=== PATIENT | male | born 2000 | race Caucasian/White ===

== ENCOUNTER 2022-10-17 07:58 | Outpatient (CLI) | payer OTHER, SELFPAY ==
--- NOTE | 2022-10-17 08:15 | CRLHL7_ITS ---
For Patients: As a result of the Century Cures Act, medical imaging exams and procedure reports are released immediately into your electronic medical record. You may view this report before your referring provider. If you have questions, please contact your health care provider. INDICATION: RUQ pain, weight loss COMPARISON: none TECHNIQUE: Real time nicholas scale imaging and color Doppler analysis was performed of the right upper quadrant. FINDINGS: The patient`s liver is of normal size and has uniform echogenicity. There is a normal appearance of the hepatic IVC and proximal abdominal aorta. There is no evidence of ascites. The gallbladder is moderately filled with echogenic sludge along with echogenic debris elsewhere. The gallbladder wall measures 2 mm in thickness. The common bile duct is of normal size and measures 5 mm in diameter at the level of the celsa hepatis. The pancreas appears normal. There is no evidence of a stone or hydronephrosis within the right kidney. The right kidney measures 10.7 cm in length. IMPRESSION: Moderate sludge in the gallbladder along with cholesterol stones consistent with cholelithiasis. No biliary obstruction. Dictated by Jagdeep Nicole MD @ 10/17/2022 10:55:37 AM (Electronically Signed)
== END 2022-10-17 07:59 | disposition home or self-care (01) ==
PROVIDERS: Visit Provider Internal Medicine
DX: R10.11 Right upper quadrant pain (principal); K80.20 Calculus of gallbladder without cholecystitis without obstruction
CPT/HCPCS: 76705

== ENCOUNTER 2022-11-08 13:46 | Emergency (ER) | payer OTHER, SELFPAY ==
[2022-11-08] VITALS (17 sets, daily range): BP systolic 119–141; BP diastolic 71–90; PULSE 51–73; RESP 18; TEMP 36.6; O2SAT 97–100; BMI 21.6
--- NOTE | 2022-11-08 14:13 | ED_ITS ---
HPI - Abdominal Pain General Time Seen by Provider: 14:14 Date Seen: 11/08/22 Chief Complaint: Abdominal Pain Stated Complaint: Abdominal Pain Time Seen by Provider: 11/08/22 14:07 Source: patient and RN notes reviewed Mode of arrival: ambulatory Limitations: no limitations History of Present Illness HPI narrative: Patient is a 22-year-old male presenting with increased abdominal pain. For about the last 3-4 days, has had increased right-sided abdominal pain. His baseline abdominal pain has been about a level 3 or 4, is having episodes where it is becoming stabbing and sharp for a while. With this he will have nausea but no vomiting. Appetite is diminished. He has been plagued with some abdominal pain and diarrhea with weight loss. Has had negative stool studies. Has been in the ED before and then a clinic follow-up. Ultrasound of his gallbladder at that clinic followup did show sludge and stones. They state the surgeon was not convinced that the symptoms were from gallstones. He has not noted any fever. His mom is wondering about a CT of his abdomen given the right-sided symptoms, his dad has had to have his appendix out. She is not awar e of anyone needing their gallbladder out. She herself has gallstones but has never had any issue. He has had weight loss with this diarrhea, has had negative stool studies. EGD and colonoscopy are scheduled for November 14. MD elicited complaint: abdominal pain Related Data Previous Rx's Medication Instructions Recorded peg 3350-electrolytes 236 240 ml PO Q10M #4,000 mL 10/29/22 gram-22.74 gram-6.74 gram-5.86 gram solution (Golytely) Allergies Allergy/AdvReac Type Severity Reaction Status Date / Time No Known Drug Allergies Allergy Verified 10/24/22 13:15 Review of Systems Status of ROS Reports: 6 or more systems reviewed and unremarkable except as noted in History and below [facility] Medical History Weight loss ?R63.4 - Abnormal weight loss (ICD-10) Cholelithiasis ?K80.20 - Calculus of gallbladder without cholecystitis without obstruction (ICD-10) Loose stools ?R19.5 - Other fecal abnormalities (ICD-10) No significant past medical history Surgical History History of nasal septoplasty ?Z98.890 - Other specified postprocedural states (ICD-10) No significant past surgical history Family History Mother Autoimmune disorder Other High blood pressure Social History Narrative: Non smoker Smoking Status: Never smoker Do you use any of these nicotine containing products: None Second hand tobacco smoke exposure: No How often do you have a drink containing alcohol: never How often do you have six or more drinks on one occasion: Never AUDIT-C Alcohol total score: 0 Non-prescribed substance use: denies use Exam Const: Vital Signs, click to edit/add: Vital Signs - 24 hr 11/08/22 13:56 11/08/22 15:00 11/08/22 15:43 Temperature 97.8 F Pulse Rate 62 Pulse Rate [Pulse Oximeter] 73 67 Respiratory Rate 18 18 Blood Pressure Blood Pressure [Ri ght Upper Arm] 139/82 119/75 Pulse Oximetry 97 98 97 Oxygen Delivery Me thod Room Air Room Air Room Air 11/08/22 15:45 11/08/22 16:00 11/08/22 16:02 Temperature Pulse Rate 70 71 62 Pulse Rate [Pulse Oximeter] Respiratory Rate Blood Pressure 121/72 Blood Pressure [Ri ght Upper Arm] Pulse Oximetry 98 99 99 Oxygen Delivery Me thod 11/08/22 16:15 11/08/22 16:30 11/08/22 16:31 Temperature Pulse Rate 60 61 62 Pulse Rate [Pulse Oximeter] Respiratory Rate Blood Pressure 123/74 Blood Pressure [Ri ght Upper Arm] Pulse Oximetry 98 99 100 Oxygen Delivery Me thod 11/08/22 16:45 Temperature Pulse Rate 63 Pulse Rate [Pulse Oximeter] Respiratory Rate Blood Pressure Blood Pressure [Ri ght Upper Arm] Pulse Oximetry 99 Oxygen Delivery Me thod Documenting provider has reviewed patient's vital signs: yes Common normals: no apparent distress, oriented x3, no limitations, healthy appearing and alert General appearance: cooperative, comfortable, well kempt and well developed Nutritional appearance: thin HENMT: Common normals: normocephalic, head/scalp atraumatic, hearing grossly normal bilaterally, external nose normal, moist oral mucous membranes, oropharynx normal, dentition normal and gingiva normal Head and scalp: normocephalic and atraumatic Nose: external nose normal Eye: Common normals: PERRL, EOMs intact bilaterally, conjunctivae normal and no scleral icterus Conjunctiva: conjunctiva(e) normal Pupil: PERRL Neck & C-Spine: Common normals: full ROM, no lymphadenopathy and supple Resp: Common normals: normal respiratory effort, no retractions, no use of accessory muscles and clear to auscultation bilaterally Effort & inspection: able to speak in complete sentences Auscultation: clear to auscultation bilaterally Cardio: Common normals: regular rate, regular rhythm, S1 normal heart sound, S2 normal heart sound, no gallops, no clicks and no murmurs Rate: regular rate Rhythm: regular rhythm Heart sounds: S1 normal and S2 normal GI: Other: Abdomen is thin, not distended. Bowel sounds are normal. Has right upper quadrant to right mid abdominal pain with guarding, no rebound. I do not feel any mass. Neuro: Common normals: oriented x3 Sensorium/orientation: alert Psych: Appearance: well kempt Course Course Hospital Course: Will proceed with CT imaging given the lower right abdominal pain on palpation. Mom really would like this. Will get full complement of labs including liver functions. Obtain repeat right upper quadrant ultrasound. Colitis, choledocholithiasis with pancreatitis, pancreatitis, cholecystitis, appendicitis are among intra-abdominal considerations. I have also reviewed possibility of inflammatory bowel disease. Will get labs and repeat the ultrasound, obtain CT of the abdomen to further evaluate. Reevaluation(s) Time of Reevaluation #1: 16:20 Reevaluation #1: Have reviewed with patient and his mom that the ultrasound is showing some sludge in the gallbladder but no evidence of wall thickening, no cholecystitis. His labs are very unremarkable including inflammatory markers. We are still awaiting his CT of his abdomen to be read. He is uncomfortable, reviewed with him that we can try some IV Toradol in see if it helps. Zofran did help his nausea. Time of Reevaluation #2: 17:47 Reevaluation #2: Reviewed that the CT is only showing some inflamed mesenteric lymph nodes. The etiology of this is unknown at this time. Otherwise the CT was read as normal. His labs are completely reassuring. The Toradol did help. They are requesting some oral Toradol and Zofran for discharge which we will give from [facility]. They understand to not use the Toradol and ibuprofen together but either can be used with Tylenol. Vital Signs Vital signs: Initial Vital Signs Temperature 97.8 F 11/08/22 13:56 Temperature Source Temporal Artery Scan 11/08/22 13:56 Pulse Rate 73 11/08/22 13:56 Pulse Rhythm Regular 11/08/22 13:56 Respiratory Rate 18 11/08/22 13:56 Blood Pressure 139/82 11/08/22 13:56 Blood Pressure Mean 101 11/08/22 13:56 Blood Pressure Position Supine 11/08/22 13:56 Pulse Oximetry 97 11/08/22 13:56 Oxygen Delivery Method Room Air 11/08/22 13:56 Vital Signs Temperature 97.8 F 11/08/22 13:56 Pulse Rate 73 11/08/22 13:56 Respiratory Rate 18 11/08/22 13:56 Blood Pressure 139/82 11/08/22 13:56 Pulse Oximetry 97 11/08/22 13:56 Oxygen Delivery Method Room Air 11/08/22 13:56 Temperature 97.8 F 11/08/22 13:56 Pulse Rate 63 11/08/22 16:45 Respiratory Rate 18 11/08/22 15:00 Blood Pressure 123/74 11/08/22 16:31 Pulse Oximetry 99 11/08/22 16:45 Oxygen Delivery Method Room Air 11/08/22 15:43 MDM - Abdominal Pain Differential Diagnosis Differential diagnosis: Likely abdominal pain, acute appendicitis, gastroenteritis, pancreatitis and small bowel obstruction Lab Data Attestation: I reviewed the patient's lab results. Labs: Lab Results 11/08/22 Range/Units 14:45 WBC 7.24 (4.50-11.00) K/uL RBC 4.71 (4.30-5.90) m/uL Hgb 13.7 (13.5-17.5) gm/dL Hct 40.4 (37.0-53.0) % MCV 86 (80-100) fL MCH 29 (26-34) pg MCHC 34 (32-36) gm/dL RDW Coeff of Latha 12.2 (11.5-15.5) % Plt Count 303 (140-440) K/uL Neut % (Auto) 55.0 (42.0-72.0) % Lymph % (Auto) 30.4 (20-44) % Rooks % (Auto) 11.3 H (0.0-11.0) % Eos % (Auto) 2.3 (0.0-7.0) % Baso % (Auto) 0.4 (0.0-3.0) % Neut # (Auto) 3.98 (1.7-7.0) K/uL Lymph # (Auto) 2.20 (0.90-2.90) K/uL Rooks # (Auto) 0.80 (0.00-0.90) K/UL Eos # (Auto) 0.17 (0.00-0.50) K/uL Baso # (Auto) 0.03 (0.00-0.30) K/uL Sodium 139 (135-149) mmol/L Potassium 3.6 (3.6-5.1) mmol/L Chloride 103 (96-114) mmol/L Carbon Dioxide 24 (20-32) mmol/L BUN 13 (5-24) mg/dL Creatinine 0.8 (0.5-1.5) mg/dL Estimated Creat Clear 144.03 Estimated GFR 128 ml/min Glucose 99 (60-115) mg/dL Lactate 1.0 (0.5-1.9) mmol/L Calcium 9.5 (8.4-10.6) mg/dL Total Bilirubin 0.3 (0.1-1.5) mg/dL Direct Bilirubin 0.0 (0.0-0.5) mg/dL AST 23 (12-35) U/L ALT 17 (4-50) U/L Alkaline Phosphatase 64 (40-150) U/L C-Reactive Protein 1.0 (0.5-1.0) mg/dL Total Protein 8.2 (6.0-8.3) g/dL Albumin 2.5 L (3.3-5.0) g/dL Lipase 71 (23-300) U/L Imaging Data US - abdomen: Attestation: I have reviewed the pertinent imaging results. Radiologist's impression: Patient: [facility] Facility:[facility] Patient ID:?[id number] Site Patient ID:?[id number]. Site :?[id number] Study:?US Abdomen RUQ-11/08/2022 3:08:44 PM Ordering Physician:Yuly Purcell Final Report: INDICATION: Right abdominal pain, known gallstones TECHNIQUE: Ultrasound abdomen limited. Sonographic images of the right upper quadrant were obtained using nicholas-scale and color Doppler images. COMPARISON: Right upper quadrant ultrasound 10/17/2022 FINDINGS: Liver: Normal in size and echotexture. No masses. No intrahepatic biliary dilatation. Gallbladder: Minimal gallbladder sludge. No cholelithiasis. Negative sonographic Odom sign. Normal wall thickness. No pericholecystic fluid. Common bile duct: 4 mm. Pancreas: Normal. Right kidney: Normal in size. Normal echotexture and cortex. No masses, stones, or hydronephrosis. Vasculature: Proximal abdominal aorta and IVC are normal. IMPRESSION: Minimal gallbladder sludge, otherwise unremarkable right upper quadrant ultrasound. Dictated by Gonsalo Rosales MD @ 11/08/2022 3:40:54 PM (Electronic Signature) CT scan - abdomen: Attestation: I have reviewed the pertinent imaging results. Radiologist's impression: Patient: ISABELLE JOHNSON Facility:?[facility] Patient ID:?[id number] Site Patient ID:?[id number]. Site :?[id number] Study:?CT Abdomen/Pelvis W/ISOVUE 370 76CC-11/08/2022 4:29:58 PM Ordering Physician:?Paola Purcell Final Report: INDICATION: Right abdominal pain.. TECHNIQUE: CT abdomen and pelvis acquired with 76 cc Isovue 370 IV contrast. COMPARISON: None. FINDINGS: Lower chest: Unremarkable. Liver: Unremarkable. Normal in size and attenuation. No suspicious masses. Gallbladder and bile ducts: Unremarkable. No stones or inflammation. No biliary dilatation. Pancreas: Unremarkable. No mass or inflammation. Spleen: Unremarkable. Normal in size. No masses. Adrenal glands: Unremarkable. No nodules. Kidneys: Unremarkable. No suspicious masses, stones, or hydronephrosis. GI tract: No bowel obstruction. Appendix is not entirely visualized small tubular structure in the right lower quadrant likely the appendix. No right lower quadrant inflammatory changes no free-fluid. Vasculature: Abdominal aorta is normal in caliber. Mesenteric arteries are patent. Lymph nodes: Diffusely enlarged as lymph nodes.. Peritoneum/Abdominal Wall: Unremarkable. No sign of mass or infiltration. No free air or significant free fluid. Pelvis: Unremarkable. Bones: Unremarkable for age. IMPRESSION: No acute intra-abdominal process identified. Probable appendix identified in the right lower quadrant. No evidence of inflammation. No surrounding inflammatory changes or free fluid in the right lower quadrant. Diffusely enlarged mesenteric lymph nodes, nonspecific. Please note that all CT scans at this facility use dose modulation, iterative reconstruction, and/or weight-based dosing when appropriate to reduce radiation dose to as low as reasonably achievable. Dictated by Pawan Gaitan MD @ 11/08/2022 5:00:47 PM (Electronic Signature) Critical Care Time Critical Care Time Critical Care Time: No Discharge Plan Discharge Clinical Impression: Unintended weight loss, Diarrhea, Abdominal pain Patient Disposition: Home, Self-Care Condition: Stable Instructions: Acute Abdominal Pain (DC), Nutrition Tips for Relief of Diarrhea (ED), Chronic Abdominal Pain (DC) Additional Instructions: Can use Zofran as needed to help with nausea. Tylenol baseline for pain. Ibuprofen and Toradol can be used but not together. You can try the Toradol for more severe pain. Either of these are fine to use with Tylenol. Both Toradol and ibuprofen come from the same class of nonsteroidal anti-inflammatory medications. You need to complete the colonoscopy an EGD which is scheduled next week. In the interim, if you feel your becoming dehydrated or have new or worsening symptoms, can always seek re-evaluation with us. Activity Level: Activity as Tolerated Prescriptions: No Action peg 3350-electrolytes [Golytely] 236-22.74-6.74 -5.86 gram recon soln 240 ml PO Q10M Qty: 4000 0RF Rx Instructions: until fecal effluent is clear Follow Up/Referrals: Provider,Not a Local [Primary Care Provider] - Stand Alone Forms: MyHealth Info Instructions
--- NOTE | 2022-11-08 14:31 | CRLHL7_ITS ---
For Patients: As a result of the Century Cures Act, medical imaging exams and procedure reports are released immediately into your electronic medical record. You may view this report before your referring provider. If you have questions, please contact your health care provider. INDICATION: Right abdominal pain.. TECHNIQUE: CT abdomen and pelvis acquired with 76 cc Isovue 370 IV contrast. COMPARISON: None. FINDINGS: Lower chest: Unremarkable. Liver: Unremarkable. Normal in size and attenuation. No suspicious masses. Gallbladder and bile ducts: Unremarkable. No stones or inflammation. No biliary dilatation. Pancreas: Unremarkable. No mass or inflammation. Spleen: Unremarkable. Normal in size. No masses. Adrenal glands: Unremarkable. No nodules. Kidneys: Unremarkable. No suspicious masses, stones, or hydronephrosis. GI tract: No bowel obstruction. Appendix is not entirely visualized small tubular structure in the right lower quadrant likely the appendix. No right lower quadrant inflammatory changes no free-fluid. Vasculature: Abdominal aorta is normal in caliber. Mesenteric arteries are patent. Lymph nodes: Diffusely enlarged as lymph nodes.. Peritoneum/Abdominal Wall: Unremarkable. No sign of mass or infiltration. No free air or significant free fluid. Pelvis: Unremarkable. Bones: Unremarkable for age. IMPRESSION: No acute intra-abdominal process identified. Probable appendix identified in the right lower quadrant. No evidence of inflammation. No surrounding inflammatory changes or free fluid in the right lower quadrant. Diffusely enlarged mesenteric lymph nodes, nonspecific. Please note that all CT scans at this facility use dose modulation, iterative reconstruction, and/or weight-based dosing when appropriate to reduce radiation dose to as low as reasonably achievable. Dictated by Pawan Gaitan MD @ 11/08/2022 5:00:47 PM (Electronically Signed)
--- NOTE | 2022-11-08 14:31 | CRLHL7_ITS ---
For Patients: As a result of the Century Cures Act, medical imaging exams and procedure reports are released immediately into your electronic medical record. You may view this report before your referring provider. If you have questions, please contact your health care provider. INDICATION: Right abdominal pain, known gallstones TECHNIQUE: Ultrasound abdomen limited. Sonographic images of the right upper quadrant were obtained using nicholas-scale and color Doppler images. COMPARISON: Right upper quadrant ultrasound 10/17/2022 FINDINGS: Liver: Normal in size and echotexture. No masses. No intrahepatic biliary dilatation. Gallbladder: Minimal gallbladder sludge. No cholelithiasis. Negative sonographic Odom sign. Normal wall thickness. No pericholecystic fluid. Common bile duct: 4 mm. Pancreas: Normal. Right kidney: Normal in size. Normal echotexture and cortex. No masses, stones, or hydronephrosis. Vasculature: Proximal abdominal aorta and IVC are normal. IMPRESSION: Minimal gallbladder sludge, otherwise unremarkable right upper quadrant ultrasound. Dictated by Gonsalo Rosales MD @ 11/08/2022 3:40:54 PM (Electronically Signed)
[2022-11-08] MEDS: 0.9 % SODIUM CHLORIDE 1000 ml 1,000 ML 500 ML IV (14:44)
[2022-11-08] MEDS: ONDANSETRON 2 MG/ML inj 4 MG IVP (14:44)
[2022-11-08 14:56] LABS: Basophils Absolute Auto 0.03 K/uL (0.00-0.30); Basophils Percent Auto 0.4 % (0.0-3.0); Eosinophils Absolute Auto 0.17 K/uL (0.00-0.50); Eosinophils Percent Auto 2.3 % (0.0-7.0); Hematocrit 40.4 % (37.0-53.0); Hemoglobin* 13.7 gm/dL (13.5-17.5); Immature Granulocytes Abs Auto 0.04 K/uL (0.00-0.30); Immature Granulocytes Pct Auto 0.6 %; Lymphocytes Percent Auto 30.4 % (20-44); Mean Corpuscular HGB Conc 34 gm/dL (32-36); Mean Corpuscular Hemoglobin 29 pg (26-34); Mean Corpuscular Volume 86 fL (80-100); Monocytes Percent Auto 11.3 % (0.0-11.0); Neutrophils Absolute Auto 3.98 K/uL (1.7-7.0); Platelet Count* 303 K/uL (140-440); RDW Coefficient of Variation % 12.2 % (11.5-15.5); Red Blood Count 4.71 m/uL (4.30-5.90); White Blood Count* 7.24 K/uL (4.50-11.00)
[2022-11-08 14:58] LABS: Slide Review Reflex No
[2022-11-08 15:13] LABS: Albumin* 2.5 g/dL (3.3-5.0); Chloride* 103 mmol/L (96-114)
[2022-11-08 15:14] LABS: Potassium* 3.6 mmol/L (3.6-5.1); Sodium* 139 mmol/L (135-149)
[2022-11-08 15:16] LABS: Creatinine* 0.8 mg/dL (0.5-1.5); Est. Creatinine Clearance* 144.03; Estimated Glomerular Filt Rate 128 ml/min
[2022-11-08 15:17] LABS: Alanine Aminotransferase* 17 U/L (4-50); Alkaline Phosphatase* 64 U/L (40-150); Aspartate Amino Transferase* 23 U/L (12-35); Bilirubin Total* 0.3 mg/dL (0.1-1.5); Blood Urea Nitrogen* 13 mg/dL (5-24); Calcium* 9.5 mg/dL (8.4-10.6); Carbon Dioxide* 24 mmol/L (20-32); Glucose* 99 mg/dL (60-115); Lipase* 71 U/L (23-300); Total Protein* 8.2 g/dL (6.0-8.3)
[2022-11-08] MEDS: KETOROLAC 15 MG/ML inj IVP (16:30)
== END 2022-11-08 18:14 | disposition home or self-care (01) ==
PROVIDERS: Emergency Provider Family Medicine
DX: R63.4 Abnormal weight loss (principal); R19.7 Diarrhea, unspecified; R10.9 Unspecified abdominal pain
CPT/HCPCS: 36415; 74177; 76705; 80053; 82248; 83605; 83690; 85025; 86140; 96361; 96374; 96375; 99284; 99285; J1885; J2405; J7030; Q9967

== ENCOUNTER 2022-11-14 12:32 | Outpatient (CLI) | payer OTHER, SELFPAY ==
--- NOTE | 2022-11-14 15:12 | W.ANESCHARGE ---
Anesthesia Charges Start Date/Time Anesthesia Start Date: 11/14/22 Anesthesia Start Time: 14:10 Stop Date/Time Anesthesia Stop Date: 11/14/22 Anesthesia Stop Time: 15:08
== END 2022-11-14 12:33 | disposition home or self-care (01) ==
LOC: OP CLINIC 12:33
PROVIDERS: Visit Provider Surgery
DX: R10.33 Periumbilical pain (principal); K31.89 Other diseases of stomach and duodenum; K21.00 Gastro-esophageal reflux disease with esophagitis, without bleeding
CPT/HCPCS: 00813; 43239; 45380; 88305; 88342; J2704